=== PATIENT | male | born 1990 | race Caucasian/White ===

== ENCOUNTER 2017-09-27 01:18 | Emergency (ER) | payer MEDICAID ==
[~2017-09-27] VITALS: Ht 167.6 cm; Wt 54.5 kg
[2017-09-27 03:31] VITALS: BP 134/76
[2017-09-27] MEDS ORDERED: BACITRACIN 0.9 GM PACKET OINTMENT TP ONE (04:00)
[2017-09-27] MEDS ORDERED: CEPHALEXIN MONOHYDRATE 500 MG CAPSULE PO ONE (04:00)
[2017-09-27] MEDS ORDERED: DOXYCYCLINE 100 MG CAPSULE PO ONE (04:00)
== END 2017-09-27 04:05 | disposition home or self-care (01) ==
LOC: EMS 01:19
DX: L03.115 Cellulitis of right lower limb (principal); B35.3 Tinea pedis
CPT/HCPCS: 99284